=== PATIENT | male | born 1975 | race Caucasian/White ===

== ENCOUNTER 2018-05-19 17:00 | Inpatient (IN) | payer OTHER ==
[~2018-05-19] VITALS: Ht 175.3 cm; Wt 102.3 kg
[2018-05-19 17:11] VITALS: BP_SYST 146
--- NOTE | 2018-05-19 17:16 | NUR ---
Patient to ER bed 6 to gown for evaluation. Side rails up.
--- NOTE | 2018-05-19 17:16 | NUR ---
Pt c/o RUQ abdominal pain that radiates to back, burning pain to stomach. Pt was seen at urgent care [facility] [employer] [employer], U/S done, was dx with gallstones.
--- NOTE | 2018-05-19 17:20 | NUR ---
# 20 gauge angiocath placed to LAC. Use of asceptic technique. Opsite placed over site. Blood return noted. Blood for lab drawn from site. Flushed with 10 cc of normal saline. No evidence of infiltration noted. Patient tolerated well.
--- NOTE | 2018-05-19 17:20 | NUR ---
Pt presents copies of lab results from urgent care: WBC 17.4, Neutrophils 13.9. Dr. Suarez made aware and blood cx drawn as well as lactic acid. Specimens sent to lab.
[2018-05-19] MEDS ORDERED: NACL 0.9% 1,000 ML IV ONE (17:30)
[2018-05-19] MEDS ORDERED: metroNIDAZOLE 500 MG TABLET PO ONE (17:30)
--- NOTE | 2018-05-19 17:30 | NUR ---
Dr. Suarez at bedside.
--- NOTE | 2018-05-19 18:50 | NUR ---
Reminded Dr. Suarez that Lactic Acid order was not entered. Called lab to run previously draw blood for lactic acid. Blood for blood Cx and lactic acid was drawn at the time of IV insertion and sent to lab prior to administration of antibiotics.
--- NOTE | 2018-05-19 19:10 | NUR ---
ADMIT NOTE Received pt from ER to the floor with a diagnosis of acute cholecystitis. Admission process initiated. patient oriented to pain management, safety and call light-teach back done.
--- NOTE | 2018-05-19 19:14 | NUR ---
Patient will be admitted to care of Dr. Bautista. Admitted to Med/Surg unit. Will go to room 133B. Belongings list completed. Summary report printed. Bedside report given to MEG Ramirez.
[2018-05-19 19:22] VITALS: BP_SYST 152
--- NOTE | 2018-05-19 19:50 | NUR ---
Transfer of Care Received bedside SBAR report from admission RNJames Patient is awake/alert/oriented, watching television. No acute distress noted at this time. IV site noted to LAC 20G, patency verified with good blood return/flush. Introduced myself, discussed plan of care, updated whiteboard. Bed to lowest position, 2 upper side rails raised bilaterally, call light within reach, bed alarm no activated per request. Will continue to monitor patient.
--- NOTE | 2018-05-19 21:28 | NUR ---
Consultation Called Reason for Consultation: SX Was consult called: Y Person who was notified: Alison Consulting Physician: Dr. Tenorio Timber Feller Ordering Physician: Dr. Bach
--- NOTE | 2018-05-19 21:45 | NUR ---
Received call from Dr. Tenorio. Provided SBAR report on patient and went over lab values/ultrasound results provided by urgent care. Dr. Tenorio ordered: -HIDA scan -CBC, CMP, amylase, lipase For draw 05/20 @ 0500 Order read back/verified/entered. Will discuss plan of care with patient.
--- NOTE | 2018-05-19 21:51 | NUR ---
Dr. Bahc is here, informed him that Dr. Tenorio ordered HIDA scan. Informed him no narcotics w/in 8 hours of HIDA scan. Asked for alternative pain management and suggested Toradol. Dr. Bach ordered: Toradol 15mg Q6 PRN moderate pain (4-6). Order read back, verified, entered.
[2018-05-19] MEDS ORDERED: KETOROLAC TROMETHAMINE 15 MG VIAL IVP PRN (22:00)
--- NOTE | 2018-05-19 22:02 | NUR ---
Rounds Patient is awake/alert/oriented with his bedside. No acute distress noted at this time. No shortness of breath, no labored breathing. IV site infusing D51/[id number] @ 125ml/hr with no signs of infiltration. Bed to lowest position, 2 upper side rails raised bilaterally, call light within reach, bed alarm no activated per request. Will continue to monitor patient.
[2018-05-19] MEDS ORDERED: metroNIDAZOLE 500 mg/NS 200 ML IV ONE (22:15)
[2018-05-19] MEDS: POTASSIUM CHLORIDE 20 MEQ in D5/0.45 NS 1,000 ML IV SCH (22:40)
--- NOTE | 2018-05-19 23:08 | NUR ---
Called and spoke to Joseph with pharmacy. Per [place], Lovenox and Levoquin order shows 'pending due to needing labs.' Informed her that we have copy of patient lab work from urgent care that were taken approx 1700 this evening. Provided her BUN, Cr, PLT lab values. She has no other questions and will process medications.
--- NOTE | 2018-05-20 00:09 | NUR ---
Rounds Patient is resting, eyes closed with no distress noted. Equal rise and fall of chest with non-labored respirations @ 17/min. IV site clean/dry/intact with no redness or infiltration. Bed to lowest position, 2 upper side rails raised bilaterally, call light within reach, bed alarm no activated per request. Will continue to monitor patient.
--- NOTE | 2018-05-20 01:23 | NUR ---
Assisted patient to bathroom then safely back to bed.
--- NOTE | 2018-05-20 03:36 | NUR ---
Rounds Patient is resting comfortably with eyes closed but wakes up as I enter. He does not need anything at this time and says he is in no pain. IV site clean/dry/intact with no signs of redness/infiltration. Bed to lowest position, 2 upper side rails raised bilaterally, call light within reach, bed alarm not activated per request. Will continue to monitor patient.
[2018-05-20 04:20] VITALS: BP_SYST 116
--- NOTE | 2018-05-20 05:02 | NUR ---
Assisted patient to bathroom then safely back to bed. Provided hygiene supplies as requested.
[2018-05-20] MEDS: POTASSIUM CHLORIDE 20 MEQ in D5/0.45 NS 1,000 ML IV SCH ×2 (05:30→09:11)
[2018-05-20] MEDS: metroNIDAZOLE 500 mg/NS 100 ML IV SCH ×3 (05:30→22:04)
--- NOTE | 2018-05-20 06:34 | NUR ---
Received call from Melisa with Nuclear Medicine regarding HIDA scan. She was clarifying a/ox4, ambulatory via wheelchair, NPO and narcotic status. Advised patient has remained NPO and has had no narcotics administered. She says she should be here approx 10:00am for scan.
[2018-05-20 06:50] LABS: BASOPHILS % (AUTO) 0.3 % (0.0-2.0); EOSINOPHILS # (AUTO) 0.4 K/uL (0.0-0.4); EOSINOPHILS % (AUTO) 2.9 % (0.0-4.0); HEMATOCRIT 39.8 % (36-54); HEMOGLOBIN 13.2 g/dL (14.0-18.0); LYMPHOCYTES # (AUTO) 1.5 K/uL (1.0-5.5); LYMPHOCYTES % (AUTO) 10.4 % (20.5-51.5); MEAN CORPUSCULAR HEMOGLOBIN 30 pg (27-31); MEAN CORPUSCULAR HGB CONC 33 % (32-36); MEAN CORPUSCULAR VOLUME 91 fL (79.0-98.0); MONOCYTES # (AUTO) 1.4 K/uL (0.0-1.0); MONOCYTES % (AUTO) 9.5 % (1.7-9.3); NEUTROPHILS # (AUTO) 11.1 K/uL (1.8-7.7); NEUTROPHILS % (AUTO) 76.9 % (40.0-70.0); PLATELET COUNT (AUTO) 276 K/uL (130-430); RED BLOOD CELL COUNT(AUTO) 4.38 MIL/uL (4.2-6.2); WHITE BLOOD COUNT (AUTO) 14.4 K/uL (4.8-10.8)
[2018-05-20 07:15] LABS: CALCIUM 8.9 mg/dL (8.4-11.0); CREATININE 1.04 mg/dL (0.55-1.30); POTASSIUM 4.1 mmol/L (3.5-5.1); TOTAL BILIRUBIN 1.8 mg/dL (0.0-1.0)
--- NOTE | 2018-05-20 07:35 | NUR ---
Closing Note Bedside SBAR report given to dayshift RN, Andrew Patient is awake/alert/oriented, in bed. Informed patient about HIDA approximate time of 10:00am All needs/interventions/expectations met by nightshift RN. Transfer of care successful.
[2018-05-20 08:27] VITALS: BP_SYST 127
--- NOTE | 2018-05-20 08:33 | NUR ---
opening notes, pt in bed, pt is aaox4, pt has pain 4/10 on right flank. pt aware that he cannot have narcotic pain med for HIDA scan. no sob, pt is afebrile. iv fluids infusing well. iv site has no s/s of infiltration. safety precaution kept in place. call light in reach. bed in low position. encouraged to call for assist and pain meds and any concerns. will cont to monitor.
[2018-05-20] MEDS: PANTOPRAZOLE SODIUM 40 MG/VIAL (PROTONIX) IVP SCH (09:12)
[2018-05-20] MEDS: ENOXAPARIN SODIUM 40 MG/0.4 ML SYRINGE SUBCUT SCH (09:13)
[2018-05-20 10:41] LABS: CHOLESTEROL 135 mg/dL (<200); HDL CHOLESTEROL 54 mg/dL (>45); LDL CHOLESTEROL 76 mg/dL (<100); TRIGLYCERIDES 62 mg/dL (30-150)
--- NOTE | 2018-05-20 11:45 | NUR ---
PATIENT'S MOTHER AT BEDSIDE. INFORMED HER THAT PT IS IN NM.
[2018-05-20] MEDS: HYDROmorphone 2 MG/ML VIAL IVP PRN (12:43)
--- NOTE | 2018-05-20 12:48 | NUR ---
pt given pain med for ruq abdominal pain of 02/14. family at bedside. explained to pt effects and side effects of dilaudid. pt verbalized understanding. pt encouraged to call for assist. call light in reach.
--- NOTE | 2018-05-20 13:38 | NUR ---
PT MADE UPDATED WITH PRELIM RESULT OF HIDA SCAN AND NEW ORDER RECEIVED FROM DR DUARTE/DR CARABALLO FOR CONS WITH GI MD. FAMILY AT BEDSIDE. CALL LIGHT IN REACH. NO PAIN AT THIS TIME.
--- NOTE | 2018-05-20 13:39 | NUR ---
DR DUARTE MADE AWARE OF PRELIM RESULT OF HIDA SCAN. NEW ORDER RECEIVED AND CARRIED OUT.
--- NOTE | 2018-05-20 13:45 | NUR ---
Consultation Called Reason for Consultation: High Bilirubin,Cystic Duct Obstruction Was consult called: Y Person who was notified: Geri Consulting Physician: Auction Clerk Ordering Physician: Dr. Vitale
--- NOTE | 2018-05-20 14:31 | NUR ---
DR NUNEZ MADE AWARE OF THE CONSULT AND THE HIDA SCAN RESULT. NO NEW ORDERS RECEIVED.
[2018-05-20 16:49] VITALS: BP_SYST 121
[2018-05-20 19:52] VITALS: BP_SYST 136
--- NOTE | 2018-05-20 19:55 | NUR ---
INITIAL NOTE AT INITIAL ASSESSMENT, PATIENT IS RESTING UPRIGHT IN BED, STABLE, NO SIGNS OF RESPIRATORY DISTRESS. FAMILY IS AT BEDSIDE. PATIENT VERBALIZES NO PAIN AT THIS TIME. PLAN OF CARE FOR THE EVENING IS COMMUNICATED WITH THE PATIENT. CALL LIGHT- TEACH BACK IS SUCCESSFUL. PATIENT IS NPO PER ORDERS AND WILL BE KEPT ON NPO UNTIL FURTHER ORDERS ARE GIVEN, NPO [place] AT BEDSIDE FOR REMIDNER. FALL AND SAFETY PRECAUTIONS WILL BE IN PLACE THROUGHOUT THE SHIFT. BED IS LOCKED, AND AT THE LOWEST LEVEL.
--- NOTE | 2018-05-20 21:52 | NUR ---
BED ALARM REFUSAL NOTE PATIENT IS RESTING IN BED, STABLE, NO SIGNS OF RESPIRATORY DISTRESS. CALL LIGHT WITHIN REACH. PATIENT IS REFUSING BED ALARM DESPITE SAFETY EDUCATION GIVEN, BUT IS NOT A FALL RISK PER [place] FALL SCALE USED. BED IS LOCKED, AND AT THE LOWEST LEVEL.
--- NOTE | 2018-05-20 23:50 | NUR ---
NOTE PATIENT IS SLEEPING, STABLE, NO SIGNS OF RESPIRATORY DISTRESS. CALL LIGHT WITHIN REACH. BED IS LOCKED, AND AT THE LOWEST LEVEL.
[2018-05-21 00:40] VITALS: BP_SYST 111
--- NOTE | 2018-05-21 01:47 | NUR ---
NOTE PATIENT IS SLEEPING, STABLE, NO SIGNS OF RESPIRATORY DISTRESS. CALL LIGHT WITHIN REACH. BED IS LOCKED, AND AT THE LOWEST LEVEL.
[2018-05-21] MEDS: POTASSIUM CHLORIDE 20 MEQ in D5/0.45 NS 1,000 ML IV SCH ×3 (02:17→17:47)
--- NOTE | 2018-05-21 03:46 | NUR ---
NOTE PATIENT IS SLEEPING, STABLE, NO SIGNS OF RESPIRATORY DISTRESS. CALL LIGHT WITHIN REACH. BED IS LOCKED, AND AT THE LOWEST LEVEL.
--- NOTE | 2018-05-21 04:48 | NUR ---
NOTE PATIENT IS SLEEPING, STABLE, NO SIGNS OF RESPIRATORY DISTRESS. CALL LIGHT WITHIN REACH. BED IS LOCKED, AND AT THE LOWEST LEVEL.
[2018-05-21] MEDS: metroNIDAZOLE 500 mg/NS 100 ML IV SCH ×3 (05:11→22:37)
[2018-05-21 06:28] LABS: BASOPHILS % (AUTO) 0.3 % (0.0-2.0); EOSINOPHILS # (AUTO) 0.4 K/uL (0.0-0.4); EOSINOPHILS % (AUTO) 3.8 % (0.0-4.0); HEMATOCRIT 38.5 % (36-54); HEMOGLOBIN 12.8 g/dL (14.0-18.0); LYMPHOCYTES # (AUTO) 1.3 K/uL (1.0-5.5); LYMPHOCYTES % (AUTO) 12.4 % (20.5-51.5); MEAN CORPUSCULAR HEMOGLOBIN 31 pg (27-31); MEAN CORPUSCULAR HGB CONC 33 % (32-36); MEAN CORPUSCULAR VOLUME 93 fL (79.0-98.0); MONOCYTES % (AUTO) 9.7 % (1.7-9.3); NEUTROPHILS # (AUTO) 7.4 K/uL (1.8-7.7); NEUTROPHILS % (AUTO) 73.8 % (40.0-70.0); PLATELET COUNT (AUTO) 252 K/uL (130-430); RED BLOOD CELL COUNT(AUTO) 4.16 MIL/uL (4.2-6.2); RED CELL DISTRIBUTION WIDTH 11.6 % (9.0-15.0); WHITE BLOOD COUNT (AUTO) 10.1 K/uL (4.8-10.8)
--- NOTE | 2018-05-21 06:28 | NUR ---
CLOSING NOTE PATIENT IS SLEEPING, STABLE, NO SIGNS OF RESPIRATORY DISTRESS. PATIENT HAS HAD NO COMPLAINTS OF PAIN THROUGHOUT THE SHIFT. PATIENT HAS BEEN NPO THROUGHOUT THE SHIFT. CALL LIGHT IS WITHIN REACH. FALL AND SAFETY PRECAUTIONS HAVE BEEN IN PLACE THROUGHOUT THE SHIFT. BED IS LOCKED, AND AT THE LOWEST LEVEL. ALL NEEDS MET. WILL CONTINUE TO MONITOR UNTIL SHIFT REPORT IS GIVEN AT BEDSIDE TO AM NURSE.
[2018-05-21 06:43] LABS: ALBUMIN 2.5 g/dL (3.4-4.8); BILIRUBIN,DIRECT 0.3 mg/dL (0.0-0.3); CALCIUM 8.9 mg/dL (8.4-11.0); CREATININE 1.22 mg/dL (0.55-1.30); POTASSIUM 4.2 mmol/L (3.5-5.1); TOTAL BILIRUBIN 1.1 mg/dL (0.0-1.0)
[2018-05-21 08:25] VITALS: BP_SYST 121
--- NOTE | 2018-05-21 08:30 | NUR ---
OPENING NOTES, PT IN BED, AAOX4, DENIES PAIN. NO SOB, NO RESP DISTRESS. IV FLUIDS INFUSING. IV SITE CLEAN AND DRY, IV ACCESS PATENT AND INFUSING WELL. SAFETY PRECAUTION IN PLACE. CALL LIGHT IN REACH. WILL CONT TO MONITOR.
[2018-05-21] MEDS: PANTOPRAZOLE SODIUM 40 MG/VIAL (PROTONIX) IVP SCH (08:57)
[2018-05-21] MEDS: ENOXAPARIN SODIUM 40 MG/0.4 ML SYRINGE SUBCUT SCH (08:59)
[2018-05-21 11:41] VITALS: BP_SYST 124
--- NOTE | 2018-05-21 12:00 | NUR ---
PT IN BED, KEPT NPO. PAGED DR DUARTE FOR DIET ORDER BUT DID NOT CALL BACK.PT HAS 3/10 PAIN BUT REFUSED PAIN MEDS. WILL CONT TO MONITOR.
[2018-05-21 16:00] VITALS: BP_SYST 132
--- NOTE | 2018-05-21 18:56 | NUR ---
PT HAS BEEN STABLE, C/O OF 3-4/ 10 PAIN BUT REFUSED PAIN MEDICATIONS. IV FLUIDS INFUSING WELL. IV SITE INTACT, GIVEN FULL LIQUID FOR DINNER. WILL BE NPO AFTER MIDNIGHT FOR SURGERY IN AM WITH DR DUARTE.
[2018-05-21 19:00] VITALS: BP_SYST 128
--- NOTE | 2018-05-21 19:20 | NUR ---
CLOSING NOTES, PT ENDORSED TO NIGHT MEG STYLES. PT HAS BEEN AAO. REFUSED PAIN MED, PAIL PER PT IS TOLERABLE. TOLERATED FULL LIQUID FOR DINNER. ENDORSED TO MEG STYLES THAT WE NEED BE NPO AFTER MIDNIGHT AND TO COMPLETE THE CONSENT FOR SURGERY TOMORROW , INCLUDING SURGERY CHECKLIST.
--- NOTE | 2018-05-21 19:55 | NUR ---
pt.assessed.v/s assessed;values w/in normal limits.no c/o pain/nausea.i have reiterated to the pt.the diet status:npo. 2/t surgery in am.general status stable.respiratory status stable.call light/telephone placed w/in the pt's reach.i inquired if the pt. noted the room is cold.pt.stated yes.i have paged the security:i apprised security of the pt's requests:security has attended to the room temp.
[2018-05-21 20:00] VITALS: BP_SYST 128
--- NOTE | 2018-05-21 21:10 | NUR ---
i have administered the 2100p levaquin;abx.ivpb dose.i inquired if the pt.presents symptoms of pain/nausea, the pt./stated i feel a little pain:i interjected i f the pt.required pain medication the pt.stated no the pain is at a tolerable level and he presents no symptoms of nausea.
--- NOTE | 2018-05-21 22:20 | NUR ---
pt.assessed.pt.presents quiescent affect;calm,somnolent.;general status stable.respiratory status stable. pt.capable to reposition self.iv fluids infusing.i have administered the 2200p flagyl:abx;ipvb.call light/telephone placed w/in the pt's reach.
[2018-05-21] MEDS: HYDROmorphone 2 MG/ML VIAL IVP PRN (22:51)
--- NOTE | 2018-05-21 23:00 | NUR ---
pt.assessed.i inquired if the pt.requested medication:pain,nausea.pt.stated pain medication. i have administered dilaudid;2mg ivp.i have attended to the urinal;emptied/cleaned.no additional request@this hour.
--- NOTE | 2018-05-22 00:05 | NUR ---
pt.assessed.v/s assessed:values w/in normal limits.pt.presents quiescent affect;calm,somnolent.general status stable.respiratory status stable.iv fluids infusing.call light/telephone w/in the pt's reach.
[2018-05-22 00:40] VITALS: BP_SYST 119
[2018-05-22 00:50] VITALS: BP_SYST 119
--- NOTE | 2018-05-22 02:05 | NUR ---
pt.assessed.pt.presents quiescent affect;calm,somnolent.general status stable. respiratory status stable.i have inspected the urinal;unused.pt.capable to reposition self.call light/telephone w/in the pt's reach.
[2018-05-22] MEDS: POTASSIUM CHLORIDE 20 MEQ in D5/0.45 NS 1,000 ML IV SCH ×3 (02:48→20:12)
--- NOTE | 2018-05-22 04:15 | NUR ---
pt.assessed.pt.present quiescent affect;calm,somnolent.general status stable.respiratory status stable. iv fluids infusing.call light/telephone w/in the pt's reach.
[2018-05-22] MEDS: metroNIDAZOLE 500 mg/NS 100 ML IV SCH ×3 (06:09→22:06)
--- NOTE | 2018-05-22 06:35 | NUR ---
pt.assessed.pt,.presents quiescent affect;calm.pt.awake.i have attended to the pre-op check list.the chg-bath attended to.i have administered the flagyl:0600a dose.i have inquired if the pt.presents pain symptoms:pt.stated yes the level is tolerable.pt.is scheduled for surgery:@[id number].call light/telephone w/in the pt's reach.
[2018-05-22 07:54] LABS: BASOPHILS # (AUTO) 0.1 K/uL (0.0-0.2); BASOPHILS % (AUTO) 0.3 % (0.0-2.0); EOSINOPHILS # (AUTO) 0.1 K/uL (0.0-0.4); EOSINOPHILS % (AUTO) 0.5 % (0.0-4.0); HEMATOCRIT 43.1 % (36-54); HEMOGLOBIN 14.7 g/dL (14.0-18.0); LYMPHOCYTES # (AUTO) 1.2 K/uL (1.0-5.5); MEAN CORPUSCULAR HEMOGLOBIN 31 pg (27-31); MEAN CORPUSCULAR HGB CONC 34 % (32-36); MEAN CORPUSCULAR VOLUME 90 fL (79.0-98.0); MONOCYTES # (AUTO) 1.8 K/uL (0.0-1.0); MONOCYTES % (AUTO) 10.4 % (1.7-9.3); NEUTROPHILS # (AUTO) 13.7 K/uL (1.8-7.7); PLATELET COUNT (AUTO) 316 K/uL (130-430); RED BLOOD CELL COUNT(AUTO) 4.76 MIL/uL (4.2-6.2); RED CELL DISTRIBUTION WIDTH 11.7 % (9.0-15.0); WHITE BLOOD COUNT (AUTO) 16.9 K/uL (4.8-10.8)
[2018-05-22 07:58] LABS: ALBUMIN 3.2 g/dL (3.4-4.8); CALCIUM 9.5 mg/dL (8.4-11.0); CREATININE 1.38 mg/dL (0.55-1.30); POTASSIUM 4.2 mmol/L (3.5-5.1); TOTAL BILIRUBIN 1.1 mg/dL (0.0-1.0)
[2018-05-22 08:00] VITALS: BP_SYST 124
--- NOTE | 2018-05-22 08:00 | NUR ---
Opening Note/Refuse bed alarm received report from tabulating machine mechanic RN, pt resting in bed, A&OX4, respirations even and unlabored on room air, pt reports pain is controlled at this time, no acute distress noted, pt NPO awaiting surgery this AM, IV site clean, dry, intact, and infusing well,pt educated on use of call light and asked to call for assistance, pt verbalized understanding, call light in reach, pt educated on use of bed alarm for pt safety, pt refusing bed alarm, bed in low position, fall and aspiration precautions in place.
[2018-05-22] MEDS: PANTOPRAZOLE SODIUM 40 MG/VIAL (PROTONIX) IVP SCH (08:43)
--- NOTE | 2018-05-22 08:48 | NUR ---
Medication pt educated on medication use and side effects, pt verbalized understanding, tolerated medication administration well, no acute distress noted, fall and aspiration precautions in place.
--- NOTE | 2018-05-22 08:54 | NUR ---
Fever Dr. Tenorio made aware of pt temp 101.7, orders for tylenol PO, per MD knutson for pt to have tylenol PO, orders verified with read back. Addendum: 05/22/18 at 0915 by Zahida Hoffman RN add: per MD kelly simmons AM.
[2018-05-22] MEDS: ENOXAPARIN SODIUM 40 MG/0.4 ML SYRINGE SUBCUT SCH (09:00)
[2018-05-22] MEDS ORDERED: ACETAMINOPHEN 325 MG TABLET PO PRN (09:00)
--- NOTE | 2018-05-22 09:20 | NUR ---
Medication pt temp 101.7, PRN tylenol indicated, pt educated on use and side effects of PRN tylenol, pt verbalized understanding, tolerated medication administration well, no acute distress noted, fall and aspiration precautions in place.
--- NOTE | 2018-05-22 10:17 | NUR ---
Fever pts temperature reassessed at this time, temp 99.0, vital signs stable, no acute distress noted, fall and aspiration precautions in place.
[2018-05-22 11:22] LABS: NEUTROPHILS % (AUTO) 81.8 % (40.0-70.0)
--- NOTE | 2018-05-22 12:23 | NUR ---
New IV fluids pt and pts educated on use and side effects of IV fluid administration, pt and pts verbalized understanding, new IV fluid bag hung at this time, pt tolerating well, no redness or swelling noted at IV site, no acute distress noted, fall and aspiration precautions in place.
[2018-05-22 12:42] VITALS: BP_SYST 109
--- NOTE | 2018-05-22 13:20 | NUR ---
Medication pt educated on use and side effects of medication, pt verbalized understanding, tolerating medication administration well, no redness or swelling noted at IV site, no acute distress noted, fall and aspiration precautions in place.
--- NOTE | 2018-05-22 13:22 | NUR ---
Temperature pts temp 98.3 at this time, no acute distress noted, fall and aspiration precautions in place.
--- NOTE | 2018-05-22 15:35 | NUR ---
RN Rounds pt resting in bed, family at bedside, respirations even and unlabored, no acute distress noted, pt reports pain is controlled at this time, fall and aspiration precautions in place.
[2018-05-22] MEDS ORDERED: KETOROLAC TROMETHAMINE 30 MG VIAL IVP PRN (16:30)
[2018-05-22] MEDS ORDERED: fentaNYL CITRATE/PF 100 MCG/2 ML AMP IVP PRN ×2 (16:30)
[2018-05-22] MEDS ORDERED: ONDANSETRON HCL 4 MG/2 ML VIAL IVP PRN (16:30)
--- NOTE | 2018-05-22 16:50 | NUR ---
to OR pt taken to OR via gurney, vital signs stable, no acute distress noted, care endorsed to OR nurse Cavazos.
[2018-05-22 17:05] VITALS: BP_SYST 127
[2018-05-22 17:11] VITALS: BP_SYST 127
--- NOTE | 2018-05-22 19:25 | NUR ---
Closing note pt currently in OR, report given to Emilia WEAVER.
--- NOTE | 2018-05-22 19:30 | NUR ---
OPENING NOTE RECEIVED REPORT ON PT. PT OFF UNIT IN OR. WILL WAIT FOR PT TO RETURN TO UNIT AND CONTINUE WITH PLAN OF CARE.
--- NOTE | 2018-05-22 20:10 | NUR ---
PT ON UNIT. PT IS ON UNIT RETURNING FROM SURGERY. PT IS ALERT AND ORIENTED. PT ON ROOM AIR. PT ABLE TO VERBALIZE NEEDS. IN INTACT AND RUNNING IVF PER ORDERS. INCISIONS ARE CLEAN DRY AND INTACT. JENNIFER DRAIN TO RIGHT SIDE OF ABDOMEN, WITH NO DRAINAGE YET. FALL AND SAFETY PRECAUTIONS IN PLACE. ORIENTED PT TO ROOM CALL LIGHT WITH PT. WILL CONTINUE TO MONITOR.
--- NOTE | 2018-05-22 20:12 | NUR ---
MEDICATION ADMINISTRATION ADMINISTERED IVF AND IV ABX PER ORDERS. FAMILY AT BEDSIDE. PROVIDED PT WITH URINAL. PT DENIES PAIN AT THIS TIME.
--- NOTE | 2018-05-22 22:06 | NUR ---
IV ABX/ INCENTIVE SPIROMETER ADMINISTERED IV ABX AT THIS TIME. INSTRUCTED PT ON USE OF INCENTIVE SPIROMETER. PT PROVIDED RETURN DEMONSTRATION. PT ABLE TO REACH 1999. WILL CONTINUE TO MONITOR.
--- NOTE | 2018-05-22 22:08 | NUR ---
DR DUARTE DIET ORDER RECEIVED NEW DIET ORDER FROM DR. DUARTE. WILL FOLLOW THROUGH WITH ORDERS.
--- NOTE | 2018-05-23 00:22 | NUR ---
ROUNDING NOTE PT IS SLEEPING IN BED. NO S/S OF DISTRESS OR DISCOMFORT. CALL LIGHT WITH PT. WILL CONTINUE TO MONITOR.
[2018-05-23 01:56] VITALS: BP_SYST 92
--- NOTE | 2018-05-23 02:50 | NUR ---
ROUNDING NOTE PT SLEEPING. NO S/S OF ACUTE DISTRESS. BREATHING UNLABORED. WILL CONTINUE TO MONITOR.
[2018-05-23] MEDS: metroNIDAZOLE 500 mg/NS 100 ML IV SCH ×2 (05:20→13:23)
[2018-05-23] MEDS: POTASSIUM CHLORIDE 20 MEQ in D5/0.45 NS 1,000 ML IV SCH ×2 (05:24→16:58)
--- NOTE | 2018-05-23 05:24 | NUR ---
IVF/IV ABX ADMINISTERED IV ABX PER ORDERS. ADMINISTERED IVF PER ORDERS. PT DENIES PAIN AT THIS TIME. WILL CONTINUE TO MONITOR.
--- NOTE | 2018-05-23 05:30 | NUR ---
JENNIFER DRAIN EMPTIED 40 ML OF RED FLUID FROM JENNIFER DRAIN. WILL CONTINUE TO MONITOR.
--- NOTE | 2018-05-23 07:54 | NUR ---
CLOSING NOTE ENDORSED CARE AND REPORT TO DAY SHIFT NURSE. PT IN STABLE CONDITION. ALL NEEDS MET THROUGHOUT SHIFT. NO SIGNIFICANT CHANGES TO NOTE. IVF RUNNING PER ORDERS. CALL LIGHT WITH PT.
[2018-05-23 08:00] VITALS: BP_SYST 109
--- NOTE | 2018-05-23 08:00 | NUR ---
Opening Note Report received from [facility] shift nurse. Patient is awake and resting in bed. Abdominal incision are dry and intact. right abdominal JENNIFER is draining sanguinous fluid. IV is on the LAC 20g running D51/2NS+20kcl@125. Call light is within reach and bed is in low position. Will continue to monitor.
[2018-05-23 08:52] LABS: BASOPHILS # (AUTO) 0.1 K/uL (0.0-0.2); BASOPHILS % (AUTO) 0.5 % (0.0-2.0); EOSINOPHILS # (AUTO) 0.1 K/uL (0.0-0.4); EOSINOPHILS % (AUTO) 0.6 % (0.0-4.0); HEMATOCRIT 41.3 % (36-54); HEMOGLOBIN 13.6 g/dL (14.0-18.0); LYMPHOCYTES # (AUTO) 1.1 K/uL (1.0-5.5); LYMPHOCYTES % (AUTO) 8.4 % (20.5-51.5); MEAN CORPUSCULAR HEMOGLOBIN 30 pg (27-31); MEAN CORPUSCULAR HGB CONC 33 % (32-36); MEAN CORPUSCULAR VOLUME 92 fL (79.0-98.0); MONOCYTES # (AUTO) 1.1 K/uL (0.0-1.0); MONOCYTES % (AUTO) 7.9 % (1.7-9.3); NEUTROPHILS % (AUTO) 82.6 % (40.0-70.0); PLATELET COUNT (AUTO) 331 K/uL (130-430); RED BLOOD CELL COUNT(AUTO) 4.51 MIL/uL (4.2-6.2); RED CELL DISTRIBUTION WIDTH 11.9 % (9.0-15.0); WHITE BLOOD COUNT (AUTO) 13.4 K/uL (4.8-10.8)
[2018-05-23 09:00] LABS: CALCIUM 8.8 mg/dL (8.4-11.0); CREATININE 1.18 mg/dL (0.55-1.30); POTASSIUM 4.3 mmol/L (3.5-5.1)
[2018-05-23 09:05] LABS: ALBUMIN 2.6 g/dL (3.4-4.8); TOTAL BILIRUBIN 0.6 mg/dL (0.0-1.0)
[2018-05-23] MEDS: PANTOPRAZOLE SODIUM 40 MG/VIAL (PROTONIX) IVP SCH (10:06)
[2018-05-23] MEDS: ENOXAPARIN SODIUM 40 MG/0.4 ML SYRINGE SUBCUT SCH (10:09)
--- NOTE | 2018-05-23 10:20 | NUR ---
Rounds Patient is resting in bed. No signs of distress noted.
--- NOTE | 2018-05-23 12:37 | NUR ---
MD Rounds Dr. Tenorio rounded on the patient. MD removed JENNIFER drain. Patient tolerated well.
[2018-05-23] MEDS ORDERED: HYDR-4272 PO (12:40)
[2018-05-23] MEDS ORDERED: CIPR-211 PO (12:40)
[2018-05-23 13:01] VITALS: BP_SYST 120
--- NOTE | 2018-05-23 14:39 | NUR ---
Rounds Patient is resting in bed. Call light is within reach.
--- NOTE | 2018-05-23 16:27 | NUR ---
Rounds Patient is resting in bed. Call light is within reach.
[2018-05-23 16:49] VITALS: BP_SYST 119
[2018-05-23 17:49] VITALS: BP_SYST 109
--- NOTE | 2018-05-23 18:30 | NUR ---
Transition of Care Note All transition of care instructions were provided to the patient. Patient is aware that he needs to follow up with Dr. Tenorio in one week. He verbalized understanding of all. IV and ID band were both removed. Patient left the unit in stable condition.
== END 2018-05-23 18:30 | disposition home or self-care (01) | DRG 419 ==
LOC: SED 17:00 → SMU 18:37
PROVIDERS: ADMIT Family Medicine; ATTEND Family Medicine
PROC: 0FT44ZZ Resection of Gallbladder, Percutaneous Endoscopic Approach (ICD-10-PCS; principal; 2018-05-22)
PROC: 3E0T3BZ Introduction of Anesthetic Agent into Peripheral Nerves and Plexi, Percutaneous Approach (ICD-10-PCS; 2018-05-22)
DX: K80.00 Calculus of gallbladder with acute cholecystitis without obstruction (principal); E66.9 Obesity, unspecified; Z68.33 Body mass index [BMI] 33.0-33.9, adult
CPT/HCPCS: 36415; 76700-TC; 78226; 80053; 80061; 82150-TC; 82248-TC; 83605; 83690-TC; 85025; 87040-TC; 87070-TC; 87075-TC; 87081; 88304; 96365; 99285; A9537; C9113; J1170; J1650; J1956; J3480; J3490